=== PATIENT | male | born 1985 | race Caucasian/White ===

== ENCOUNTER 2019-11-14 05:19 | Emergency (ER) | payer SELFPAY ==
[~2019-11-14] VITALS: Ht 185.4 cm; Wt 105.7 kg
[2019-11-14 05:25] VITALS: BP 138/70
--- NOTE | 2019-11-14 05:33 | NUR ---
PT TAKEN TO BED 1
--- NOTE | 2019-11-14 05:33 | NUR ---
34 Y/O MALE C/O TOOTHACHE. PT HAD A MOLAR REMOVED ON THE RIGHT SIDE X 2 DAYS AGO. NOTED RIGHT-SIDED SWELLING OF THE FACE. TENDERNESS TO TOUCH. NO ACTIVE BLEEDING AT THIS TIME. PAIN IS A 9/10 ACUTE, SHARP PAIN. MUCOUS MEMBRANES PINK AND MOIST; DENTAL CARRIES NOTED. ERMD MADE AWARE OF STATUS. SIDE RAILSX1. PLACED ON MONITOR. 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
--- NOTE | 2019-11-14 05:50 | NUR ---
Dr. Avalos examining patient.
[2019-11-14 06:28] VITALS: BP 131/68
--- NOTE | 2019-11-14 06:28 | NUR ---
Patient discharged with v/s stable. Written and verbal after care instructions given and explained. Patient alert, oriented and verbalized understanding of instructions. Ambulatory with steady gait. All questions addressed prior to discharge. ID band removed. Patient advised to follow up with PMD. Rx of CLINDAMYCIN; NORCO given. Patient educated on indication of medication including possible reaction and side effects. Opportunity to ask questions provided and answered.
== END 2019-11-14 06:28 | disposition home or self-care (01) ==
LOC: MED 05:19
DX: G89.18 Other acute postprocedural pain (principal); K08.89 Other specified disorders of teeth and supporting structures
CPT/HCPCS: 99283

== ENCOUNTER 2022-10-06 15:43 | Emergency (ER) | payer OTHER ==
[~2022-10-06] VITALS: Ht 182.9 cm; Wt 98.9 kg
[2022-10-06 15:46] VITALS: BP 117/71
--- NOTE | 2022-10-06 15:50 | NUR ---
37 y/o male, c/o body aches, "throat closed" and body cramping since this morning, 10/10 pain. denies nausea, vomiting, diarrhea. skin is pink/warm/dry. a&o x4 with even and steady gait. lungs clear bl. pt states pain is 10/10 at this time. ermd made aware of pt. pmh: psoriasis allergy: ibuprofen (hives) med: creams
--- NOTE | 2022-10-06 16:42 | NUR ---
called for swab, no answer
--- NOTE | 2022-10-06 17:02 | NUR ---
pt eloped at this time
== END 2022-10-06 17:02 | disposition left against medical advice (07) ==
LOC: MED 15:43
DX: J02.9 Acute pharyngitis, unspecified (principal); M79.10 Myalgia, unspecified site
CPT/HCPCS: 99281